=== PATIENT | male | born 1995 | race Caucasian/White ===

== ENCOUNTER 2021-09-01 23:26 | Emergency (ER) | payer SELFPAY ==
[2021-09-01 23:34] VITALS: BP 120/76
== END 2021-09-02 02:26 | disposition left against medical advice (07) ==
LOC: ED 23:26
DX: R06.00 Dyspnea, unspecified (principal); Z53.21 Procedure and treatment not carried out due to patient leaving prior to being seen by health care provider

== ENCOUNTER 2021-09-02 06:07 | Emergency (ER) | payer SELFPAY ==
--- NOTE | 2021-09-02 07:32 | Event Note ---
ED Screening Note Time: 07:31 ED Screening Note: SI with plan to jump in front of train 1013 charge nurse aware pt in [facility] This initial assessment/diagnostic orders/clinical plan/treatment(s) is/are subject to change based on patients health status, clinical progression and re- assessment by fellow clinical providers in the ED. Further treatment and workup at subsequent clinical providers discretion. Patient/guardian urged not to elope from the ED as their condition may be serious if not clinically assessed and managed. Initial orders include: JARRED
[2021-09-02 08:03] LABS: Basophils % (Auto) 0.6 % (0.0-1.8); Eosinophils # (Auto) 0.1 K/mm3 (0.0-0.4); Hematocrit 46.7 % (35.5-45.6); Hemoglobin 15.9 gm/dl (11.8-15.2); Lymphocytes # (Auto) 1.8 K/mm3 (1.2-5.4); Lymphocytes % (Auto) 31.3 % (13.4-35.0); Mean Corpuscular HGB Conc 34 % (32-34); Mean Corpuscular Volume 89 fl (84-94); Monocytes # (Auto) 0.5 K/mm3 (0.0-0.8); Monocytes % (Auto) 8.5 % (0.0-7.3); Platelet Count 179 K/mm3 (140-440); Red Blood Count 5.25 M/mm3 (3.65-5.03); Red Cell Distribution Width 12.6 % (13.2-15.2)
[2021-09-02 08:27] LABS: Alanine Aminotransferase 31 units/L (7-56); Albumin 4.6 g/dL (3.9-5); BUN/Creatinine Ratio 16; Blood Urea Nitrogen 13 mg/dL (9-20); Calcium 9.7 mg/dL (8.4-10.2); Hemolysis Index 5
--- NOTE | 2021-09-02 09:05 | Emergency Department Report ---
ED Psych HPI - General Chief Complaint: Psych Stated Complaint: SUICIDAL/FOOT PAIN Time Seen by Provider: 09/02/21 08:29 Source: patient Mode of arrival: Ambulatory - History of Present Illness Initial Comments: pt states he is here for SI, he states he plans "to jump into traffic or off a bridge" PT states he attempted to "jump in front of the [employer] train that was coming to slow down at the station" in attempt to kill himself approx. 2 weeks ago. Complaint: suicidal ideation, feels depressed -: week(s) Associated Psychiatric Symptoms: depression, suicidal ideation, racing thoughts History of same: Yes Quality: constant Improves With: none Worsens With: none - Related Data Allergies Allergy/AdvReac Type Severity Reaction Status Date / Time Penicillins Allergy Unknown Verified 09/01/21 23:34 ED Review of Systems ROS: Stated complaint: SUICIDAL/FOOT PAIN Other details as noted in HPI Constitutional: denies: chills, fever Eyes: denies: eye pain, eye discharge, vision change ENT: denies: ear pain, throat pain Respiratory: denies: cough, shortness of breath, wheezing Cardiovascular: denies: chest pain, palpitations Endocrine: no symptoms reported Gastrointestinal: denies: abdominal pain, nausea, diarrhea Genitourinary: denies: urgency, dysuria Musculoskeletal: denies: back pain, joint swelling, arthralgia Skin: denies: rash, lesions Neurological: denies: headache, weakness, paresthesias Psychiatric: denies: anxiety, depression Hematological/Lymphatic: denies: easy bleeding, easy bruising ED Past Medical Hx - Past Medical History Previous Medical History?: No Hx Hypertension: No - Social History Smoking Status: Current Every Day Smoker Substance Use Type: Methamphetamines ED Physical Exam - General Limitations: No Limitations General appearance: alert, anxious - Head Head exam: Present: atraumatic, normocephalic - Eye Eye exam: Present: normal appearance - ENT ENT exam: Present: mucous membranes moist - Neck Neck exam: Present: normal inspection - Respiratory Respiratory exam: Present: normal lung sounds bilaterally. Absent: respiratory distress - Cardiovascular Cardiovascular Exam: Present: regular rate, normal rhythm. Absent: systolic murmur, diastolic murmur, rubs, gallop - GI/Abdominal GI/Abdominal exam: Present: soft, normal bowel sounds - Rectal Rectal exam: Present: deferred - Extremities Exam Extremities exam: Present: normal inspection - Back Exam Back exam: Present: normal inspection - Neurological Exam Neurological exam: Present: alert, oriented X3 - Psychiatric Psychiatric exam: Present: normal affect, depressed, agitated, suicidal ideation - Skin Skin exam: Present: warm, dry, intact, normal color. Absent: rash ED Course Vital Signs 09/02/21 06:18 Temperature 97.7 F Pulse Rate 80 Respiratory 16 Rate Blood Pressure 106/66 [Left] O2 Sat by Pulse 98 Oximetry ED Medical Decision Making - Lab Data Result diagrams: 09/02/21 07:37 09/02/21 07:37 Critical care attestation.: If time is entered above; I have spent that time in minutes in the direct care of this critically ill patient, excluding procedure time. ED Disposition Clinical Impression: Depression, Suicidal ideation Disposition: 30 STILL A PATIENT Is pt being admited?: No Does the pt Need Aspirin: No Condition: Stable
[2021-09-02] MEDS ORDERED: LORazepam 2 MG/ML VIAL IM PRN (09:53)
[2021-09-02 10:52] LABS: Amphetamine Screen,Urine PRESUMPTIVE NEGATIVE; Benzodiazepines Screen,Urine PRESUMPTIVE NEGATIVE; Cannabinoid Screen,Urine PRESUMPTIVE NEGATIVE; Cocaine Screen,Urine PRESUMPTIVE NEGATIVE; Methadone Screen,Urine PRESUMPTIVE NEGATIVE; Opiate Screen,Urine PRESUMPTIVE NEGATIVE
[2021-09-02 10:56] LABS: Bilirubin,Urine NEG (Negative); Blood,Urine NEG (Negative); Color,Urine Straw (Yellow); Mucus,Urine FEW /HPF; Protein,Urine <15 mg/dL mg/dL (Negative); RBC,Urine < 1.0 /HPF (0.0-6.0); Urobilinogen,Urine < 2.0 mg/dL (<2.0); WBC,Urine < 1.0 /HPF (0.0-6.0)
--- NOTE | 2021-09-02 12:07 | Consultation ---
History of Present Illness - Reason for Consult Consult date: 09/02/21 Reason for consult: SI - History of Present Psychiatric Illness The patient is a 26 year old male with unknown psychiatric history. The patient was seen this morning. The patient is sedated,; per nurse, he recently received Ativan. PAST PSYCHIATRIC HISTORY: Family Psychiatric History: None reported or documented SOCIAL HISTORY ROS: MENTAL STATUS Exam: Diagnoses: Delusional disorder RECOMMENDATIONS 1013 MEDICATIONS: Zyprexa 5mg po BID Risks, benefits and alternatives of medications discussed with the patient, questions answered and consent obtained from patient. PSYCHOTHERAPY: Supportive psychotherapy provided MEDICAL: Per primary team. LEARNING SPECIALIST: Yes DISPOSITION: Recommend inpatient psychiatry at this time. LEGAL STATUS: FOLLOW-UP: Will follow. Thank you for the consult. Please contact with any questions and/or concerns. Medications and Allergies Allergies Allergy/AdvReac Type Severity Reaction Status Date / Time Penicillins Allergy Unknown Verified 09/01/21 23:34 Active Meds: Active Medications Lorazepam (Lorazepam 2 Mg/Ml Vial) 2 mg IM Q4HR PRN PRN Reason: Agitation Last Admin: 09/02/21 10:32 Dose: 2 mg Mental Status Exam - Vital signs Last Vital Signs Temp 97.7 F 09/02/21 06:18 Pulse 80 09/02/21 06:18 Resp 16 09/02/21 06:18 BP 106/66 09/02/21 06:18 Pulse Ox 98 09/02/21 06:18 Results Result Diagrams: 09/02/21 07:37 09/02/21 07:37 Abnormal lab results 09/02/21 09/02/21 09/02/21 Range/Units 07:37 07:37 07:37 RBC 5.25 H (3.65-5.03) M/mm3 Hgb 15.9 H (11.8-15.2) gm/dl Hct 46.7 H (35.5-45.6) % RDW 12.6 L (13.2-15.2) % Drew % (Auto) 8.5 H (0.0-7.3) % Total Bilirubin (0.1-1.2) mg/dL Salicylates < 0.3 L (2.8-20.0) mg/dL Acetaminophen 5.0 L (10.0-30.0) ug/mL 09/02/21 Range/Units 07:37 RBC (3.65-5.03) M/mm3 Hgb (11.8-15.2) gm/dl Hct (35.5-45.6) % RDW (13.2-15.2) % Drew % (Auto) (0.0-7.3) % Total Bilirubin 1.50 H (0.1-1.2) mg/dL Salicylates (2.8-20.0) mg/dL Acetaminophen (10.0-30.0) ug/mL All other labs normal.
[2021-09-02 20:54] VITALS: BP 98/60
== END 2021-09-03 08:22 | disposition still patient (30) ==
LOC: ED 06:07 → EEVIPCON 06:07 → ED 09-03 08:22
DX: R45.851 Suicidal ideations (principal); F32.A Depression, unspecified; F17.200 Nicotine dependence, unspecified, uncomplicated
CPT/HCPCS: 36415; 80053; 80307; 81001; 85025; 96372; 99285; J2060; 80320; G0480